=== PATIENT | male | born 1990 | race Caucasian/White ===

== ENCOUNTER → 2017-03-19 | Outpatient (CLI) | payer BC ==
--- NOTE | 2017-03-21 16:16 | CR ---
EXAM DATE: 03/19/17 PATIENT'S AGE: 26 Patient: JENAE MCDANIEL Facility: [place], [place] Site . Site : 1990 Study: XRay Hip Left w/Pelvis [id number]/28/2017 10:04:20 AM Ordering Physician: Nael Burton Final Report: Indication: Pain after injury. Technique: Three views pelvis and left hip. Findings : Vertical lucencies to the left iliac wing with some comminution suggested inferior margin. Sacroiliac joints and symphysis pubis appear normal. Hips are appropriately located. Impression : Apparent unusual vertical and likely comminuted fracture through the left iliac of indeterminate chronicity. Consider CT for further characterization. Dictated by Mariano Stern MD @ Mar 19 2017 11:26AM (Electronic Signature) Report Signed by Proxy. NEHA
== END ==
LOC: MW.CHORTHO 08:01
PROVIDERS: ATTEND Physician Assistant
DX: M25.552 Pain in left hip (principal)
CPT/HCPCS: 73502-26-LT; 73502-LT